=== PATIENT | male | born 1995 | race Two or more races ===

== ENCOUNTER 2017-07-17 11:02 | Emergency (ER) | payer OTHER ==
[2017-07-17 11:08] VITALS: BP 144/82
[2017-07-17] MEDS ORDERED: TDAP ADULT 0.5 ML INJ (BOOSTRIX) IM ONE (11:19)
--- NOTE | 2017-07-17 11:44 | EDPHY ---
General Time Seen by Provider: 07/17/17 11:19 Narrative: CHIEF COMPLAINT: Laceration, head injury HISTORY OF PRESENT ILLNESS: Patient presents with complaints of laceration to the right forehead. He was working with [employer] hoses. 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 He said 1 of the hose is "whipped around and hit me in the side of the head." Denies loss of consciousness. Has a mild headache at the site of the injury. No changes in vision. No nausea or vomiting. No neck pain or stiffness. He does have a laceration to the right temporal skin. He does not know when his last tetanus immunization was given. He has no complaints of injury elsewhere. This happened just prior to arrival. TIME OF INJURY: Just prior to arrival TETANUS STATUS: Uncertain MEDICAL/SURGICAL/SOCIAL HISTORY: Uncomplicated. Works for the [employer] REVIEW OF SYSTEMS: Ten systems reviewed and are negative unless otherwise noted in the HPI EXAMINATION General Appearance: Alert, no distress Head: normocephalic. No Alves sign. No raccoon eyes. No depression. Cardiovascular: Pulses normal throughout. Brisk cap refill Neurological: GCS 15. A&O, sensory symmetric, strength symmetric upper and lower extremities. No pronator drift. Normal [id number]. Skin: Warm and dry, no rash. 2.5 cm laceration to the right temporomandibular skin. No obvious foreign body. Extremities: Nontender, no pedal edema DIFFERENTIAL DIAGNOSES: Including but not limited to laceration, complex laceration, laceration with foreign body, intracranial hemorrhage, concussion, closed-head injury, basilar skull fracture, temporal skull fracture MDM: 11:20 a.m. Laceration to the right side of the forehead/religious. No loss of consciousness. No signs of basilar skull fracture. He is awake alert no acute distress. Will update his tetanus status. I have anesthetize the wound. Proceed with irrigation and closure. 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 11:45 a.m. Uncomplicated right temporomandibular area laceration. I do not appreciate any evidence of basilar skull fracture. Using [place] CT head rules, there is no indication for CT scan. Further, I do not feel he clinically warrants this. The wound was copiously irrigated. It has been closed without difficulty. It is well approximated. We discussed wound care. We discussed worker's compensation follow-up. We discussed suture removal at 7 days. We also discussed ED precautions for signs of infection, headache, vomiting, visual disturbance. He is comfortable this plan and discharged home stable condition. PROCEDURE: Laceration repair Consent: Verbal Location: Right temporal skin Length of repair: 2.5 cm Complexity: Complex Layer involvement: Single Anesthesia: Local per 1% lidocaine with epinephrine. 7 mL Irrigation: Extensive Debridement: None Procedure description: Following good anesthesia, the wound was copiously irrigated. Wound bed was explored with a sterile glove, and there is no foreign body noted. No injury to the underlying fascia or muscle found. Wound borders were approximated well with good hemostasis. Tolerated well without complication. Suture/Staple material: 6-0 Prolene, 5 simple ruptured sutures Wound care: Routine as discussed Suture/Staple removal: 7 Days SUPERVISION: This patient was independently evaluated without direct involvement of or examination by the attending physician. ED Precautions: Worsening pain. Erythema, edema, cyanosis, pallor, paresthesia or anesthesia. - History Smoking Status: Never smoked - Objective Vital Signs: Initial Vital Signs Temperature (C) 97.9 F 07/17/17 11:03 Heart Rate 75 07/17/17 11:03 Respiratory Rate 18 07/17/17 11:03 Blood Pressure 144/82 H 07/17/17 11:03 O2 Sat (%) 99 07/17/17 11:03 O2 Delivery Mode Room Air Allergies/Adverse Reactions: No Known Allergies Allergy (Unverified 07/17/17 11:08) Home Medications: Medication Instructions Recorded NK [No Known Home Meds] 07/17/17 Medications Given: Discontinued Medications Diphtheria/Tetanus/Acell Pertussis (Boostrix) 0.5 ml IM .ONCE ONE Stop: 07/17/17 11:20 Last Admin: 07/17/17 11:21 Dose: 0.5 ml Departure - Departure Disposition: Home, Routine, Self-Care Clinical Impression: Laceration of right temporomandibular area without foreign body Qualifiers: Encounter type: initial encounter Qualified Code(s): S01.411A - Laceration without foreign body of right cheek and temporomandibular area, initial encounter Closed head injury Qualifiers: Encounter type: initial encounter Qualified Code(s): S09.90XA - Unspecified injury of head, initial encounter Condition: Good Instructions: Care For Your Stitches (ED), Laceration (ED), Facial Laceration ( ED) Additional Instructions: 1. Daily wound care with thin layer of bacitracin 2. Keep the wound covered while at work and while in the sun 3. ED precautions for headache, vomiting, visual disturbance, nausea, neck pain or stiffness 4. [facility] for outpatient care Referrals: Physician,Emergency Dept, MD [Medical Doctor] - As per Instructions (Seven days for suture removal) Stand Alone Forms: Work Comp Follow Up
== END 2017-07-17 11:57 | disposition home or self-care (01) ==
PROC: 0HQ1XZZ Repair Face Skin, External Approach (ICD-10-PCS; principal; 2017-07-17)
DX: S01.411A Laceration without foreign body of right cheek and temporomandibular area, initial encounter (principal); Z23 Encounter for immunization; W22.8XXA Striking against or struck by other objects, initial encounter; Y92.69 Other specified industrial and construction area as the place of occurrence of the external cause; Y99.0 Civilian activity done for income or pay; Y93.89 Activity, other specified